=== PATIENT | female | born 1945 | race Caucasian/White ===

== ENCOUNTER 2018-09-29 11:57 | Inpatient (IN) | payer MEDICARE, OTHER ==
[~2018-09-29] VITALS: Ht 162.6 cm; Wt 149.2 kg
--- NOTE | 2018-09-29 12:20 | NUR ---
Pt.was seen by .
[2018-09-29 12:41] LABS: BASOPHILS # (AUTO) 0.1 K/uL (0.0-8.0); BASOPHILS % (AUTO) 0.9 % (0.0-2.0); EOSINOPHILS # (AUTO) 0.3 K/uL (0.0-0.7); EOSINOPHILS % (AUTO) 2.2 % (0.0-7.0); HEMATOCRIT 38.1 % (31.2-41.9); HEMOGLOBIN 12.2 g/dL (10.9-14.3); LYMPHOCYTES # (AUTO) 2.4 K/uL (20.0-40.0); LYMPHOCYTES % (AUTO) 19.3 % (20.5-51.5); MEAN CORPUSCULAR HEMOGLOBIN 28.7 uug (24.7-32.8); MEAN CORPUSCULAR HGB CONC 32 g/dL (32.3-35.6); MEAN CORPUSCULAR VOLUME 89.9 fL (75.5-95.3); MONOCYTES # (AUTO) 0.7 K/uL (2.0-10.0); MONOCYTES % (AUTO) 5.9 % (0.0-11.0); NEUTROPHILS # (AUTO) 8.9 K/uL (1.8-8.9); NEUTROPHILS % (AUTO) 71.7 % (38.5-71.5); PLATELET COUNT (AUTO) 209 K/uL (179-408); RED BLOOD CELL COUNT(AUTO) 4.24 MIL/uL (3.63-4.92); WHITE BLOOD COUNT (AUTO) 12.4 K/uL (3.8-11.8)
[2018-09-29 12:41] LABS: CARBON DIOXIDE 27 mmol/L (21-32); CHLORIDE 107 mmol/L (98-107); CREATININE 0.9 mg/dL (0.6-1.3); GLUCOSE 113 mg/dL (74-106); POTASSIUM 4.4 mmol/L (3.5-5.1); UREA NITROGEN, BLOOD 20 mg/dL (7-18)
[2018-09-29 12:51] LABS: ETHANOL < 3 MG/DL (0-0)
[2018-09-29 13:00] LABS: ACETAMINOPHEN < 2.0 ug/mL (10-30); ALANINE AMINOTRANSFERASE 14 U/L (14-59); ALKALINE PHOSPHATASE 86 U/L (50-136); ASPARTATE AMINOTRANSFERASE 14 U/L (15-37); BILIRUBIN,DIRECT 0.1 mg/dL (0.0-0.2); BILIRUBIN,TOTAL 0.3 mg/dL (0.2-1.0)
--- NOTE | 2018-09-29 13:01 | NUR ---
Pt.watching TV,no s/s of acute distress ,denies pain @ time.
[2018-09-29 13:12] LABS: THYROID STIMULATING HORMONE 5.835 mIU/mL (0.358-3.740)
--- NOTE | 2018-09-29 13:42 | NUR ---
PT.BACK FROM CT,FAMILY AT BEDSIDE.
[2018-09-29] MEDS ORDERED: ALBU18HF2 IH (14:38)
[2018-09-29] MEDS ORDERED: NIAC500T7 PO (14:38)
[2018-09-29] MEDS ORDERED: MONT10TA22 PO (14:38)
[2018-09-29] MEDS ORDERED: MULT1TAB73 PO (14:38)
[2018-09-29] MEDS ORDERED: ALBU2.5V7 NEB (14:38)
[2018-09-29] MEDS ORDERED: ONDANSETRON IV *ER 4 MG/2 ML VIAL IV ONE (15:15)
[2018-09-29] MEDS ORDERED: ONDANSETRON 4 MG/2 ML VIAL ONE (15:19)
--- NOTE | 2018-09-29 15:22 | NUR ---
SBAR REPORT GIVEN TO JEANE.
--- NOTE | 2018-09-29 16:13 | NUR ---
PT.WAS ABLE TO GET PO FLUID,DENIES ANY N/V.
--- NOTE | 2018-09-29 16:15 | NUR ---
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
[2018-09-29] MEDS ORDERED: HYDROCODONE/APAP 5-325MG TABLET PO PRN (16:30)
[2018-09-29] MEDS ORDERED: Z GUARD REMEDY PASTE 57 GM TUBE TOP PRN (16:30)
[2018-09-29] MEDS ORDERED: ALBUTEROL SULFATE 2.5 MG/3 ML NEBU NEB PRN (16:30)
[2018-09-29] MEDS ORDERED: ONDANSETRON 4 MG/2 ML VIAL IV PRN (16:30)
[2018-09-29] MEDS ORDERED: IV NS 1000 ML 1,000 ML IV ONE (16:30)
[2018-09-29] MEDS ORDERED: MAGNESIUM HYDROXIDE 30 ML LIQUID UDC PO PRN (16:30)
[2018-09-29] MEDS ORDERED: ZOLPIDEM 5 MG TABLET PO PRN (16:30)
[2018-09-29] MEDS ORDERED: ALBUTEROL SULFATE 8 GM HFA.AER.AD IH SCH (16:30)
[2018-09-29] MEDS ORDERED: ACETAMINOPHEN 325 MG TABLET PO PRN (16:30)
--- NOTE | 2018-09-29 16:50 | NUR ---
72 year old female received from er via [facility] for concussion to room 317 ,pt is axox4 ,v/s are stable mdcalled for admission orders
[2018-09-29 16:57] VITALS: BP 131/62
[2018-09-29 21:11] VITALS: BP 113/45
[2018-09-30 00:30] VITALS: BP 112/48
[2018-09-30 05:11] VITALS: BP 109/41
--- NOTE | 2018-09-30 06:30 | NUR ---
Pt A&O x 3, O2 at 2 lpm via NC. [place] given for c/o pain last night. NS infusing at 100 cc/hr to L wrist. All needs met. No issues during shift.
[2018-09-30 06:31] LABS: BASOPHILS # (AUTO) 0.1 K/uL (0.0-8.0); BASOPHILS % (AUTO) 0.6 % (0.0-2.0); EOSINOPHILS # (AUTO) 0.3 K/uL (0.0-0.7); EOSINOPHILS % (AUTO) 2.6 % (0.0-7.0); HEMATOCRIT 36.4 % (31.2-41.9); HEMOGLOBIN 11.7 g/dL (10.9-14.3); LYMPHOCYTES # (AUTO) 2.6 K/uL (20.0-40.0); LYMPHOCYTES % (AUTO) 26.4 % (20.5-51.5); MEAN CORPUSCULAR HGB CONC 32 g/dL (32.3-35.6); MEAN CORPUSCULAR VOLUME 90.6 fL (75.5-95.3); MONOCYTES # (AUTO) 0.7 K/uL (2.0-10.0); MONOCYTES % (AUTO) 7.1 % (0.0-11.0); NEUTROPHILS # (AUTO) 6.1 K/uL (1.8-8.9); NEUTROPHILS % (AUTO) 63.3 % (38.5-71.5); PLATELET COUNT (AUTO) 216 K/uL (179-408); RED BLOOD CELL COUNT(AUTO) 4.02 MIL/uL (3.63-4.92); WHITE BLOOD COUNT (AUTO) 9.7 K/uL (3.8-11.8)
[2018-09-30 06:50] LABS: CREATININE 0.9 mg/dL (0.6-1.3); MAGNESIUM 2.2 mg/dL (1.8-2.4); PHOSPHOROUS 3.8 mg/dL (2.5-4.9); POTASSIUM 4.5 mmol/L (3.5-5.1)
--- NOTE | 2018-09-30 07:30 | NUR ---
RECIEVED PT LYING IN BED WITH HOB UP AT 35DEGREES SOUND ASLEEP BUT AROUSABLE TO CALL. PT IS HEAVILY OBESED, BUT ABLE TO MOVE ALL EXTREMETIES WELL. C/O SLIGHTLY SORE BODY IN GENERAL. NO C/O HEADACHE OR N/V.
--- NOTE | 2018-09-30 08:30 | NUR ---
NO C/O CHEST PAINS. HR IS SR ON THE MONITOR. IV ON THE LEFT RADIAL SITE. IVF IS DISCONTINUED. PT IS EATING AND DRINKING FLUIDS WELL. DR MARINELLI IS AWARE.
[2018-09-30] MEDS ORDERED: Medication Not On Formulary EA (Multivitamins (Multivitamin) 1 EACH) PO SCH (09:00)
[2018-09-30] MEDS ORDERED: NIACINAMIDE 500 MG TABLET PO SCH (09:00)
[2018-09-30] MEDS ORDERED: NIACIN 500 MG TABLET PO SCH (09:00)
[2018-09-30] MEDS ORDERED: MULTIVITAMINS,THERAPEUTIC TABLET PO SCH (09:00)
--- NOTE | 2018-09-30 09:00 | NUR ---
SEEN AND EXAMINED BY DR MARINELLI WITH A DISCHARGE ORDER. AWAITING FOR THE 2D ECHO TO BE DONE.
[2018-09-30 12:15] VITALS: BP 130/52
--- NOTE | 2018-09-30 13:00 | NUR ---
2DECHO IS DONE. PT AWARE THAT SHE IS BEING DISCHARGED. NEEDED A FAMILY MEMBER TO PICK HER UP. WILL BE PICKED UP AFTER 6PM.
[2018-09-30 16:28] VITALS: BP 140/66
--- NOTE | 2018-09-30 17:00 | NUR ---
[facility] REMOVED AND DISCONTINUES. DISCHARGE INSTRUCTIONS AND EDUCATIONAL TEACHING GIVEN TO THE PT WITH GOOD UNDERSTANDING.
--- NOTE | 2018-09-30 17:45 | NUR ---
DISCHARGED VIA WC, DAUGHTER IS AWAITING IN THE LOBBY. CONDITION IS STABLE.
[2018-09-30] MEDS ORDERED: MONTELUKAST SODIUM 10 MG TABLET PO SCH (18:00)
== END 2018-09-30 17:45 | disposition home or self-care (01) | DRG 89 ==
LOC: ER 11:59 → TELE3 15:43 → MEDSURG3 09-30 16:46
PROVIDERS: ADMIT Family Medicine; ATTEND Family Medicine
DX: S06.0X0A Concussion without loss of consciousness, initial encounter (principal); E44.0 Moderate protein-calorie malnutrition; Z68.43 Body mass index [BMI] 50.0-59.9, adult; W01.0XXA Fall on same level from slipping, tripping and stumbling without subsequent striking against object, initial encounter; Y93.01 Activity, walking, marching and hiking; Y92.89 Other specified places as the place of occurrence of the external cause; J44.9 Chronic obstructive pulmonary disease, unspecified; Z99.81 Dependence on supplemental oxygen; E66.9 Obesity, unspecified; Z90.710 Acquired absence of both cervix and uterus; Z82.49 Family history of ischemic heart disease and other diseases of the circulatory system; I51.7 Cardiomegaly; D72.829 Elevated white blood cell count, unspecified; I25.10 Atherosclerotic heart disease of native coronary artery without angina pectoris; R94.6 Abnormal results of thyroid function studies; Z96.659 Presence of unspecified artificial knee joint; R73.9 Hyperglycemia, unspecified; R91.8 Other nonspecific abnormal finding of lung field
CPT/HCPCS: 36415; 70030-TC; 70450; 71045; 71250; 72125; 83605; 83735; 84100; 84443; 85025; 85730; 87040; 93005; 93307; A4663; G0378; G0480; G0480-TC; J2405